=== PATIENT | female | born 2000 | race Caucasian/White ===

== ENCOUNTER 2023-08-26 16:22 | Emergency (ER) | payer SELFPAY ==
[2023-08-26 16:29] VITALS: BP 156/101
--- NOTE | 2023-08-26 17:28 | ED.GENMED ---
History of Present Illness
<Josey Roberts PA-C - Last Filed: 08/26/23 18:20>
General
Chief Complaint: Skin Surface Trauma
Source: patient
Exam Limitations: none
Time Seen by Provider: 08/26/23 17:25
Nursing documentation reviewed up to this point in time: agreed with
Travel History
Have you had any contact with someone who has COVID-19?: No
Do you have any symptoms of coronavirus? Fever > 100 degrees, chills, cough, shortness of breath, sore throat, loss of taste or smell, muscle aches, or headache?: No
History of Present Illness
History of Present Illness:
22-year-old female with no past medical history presents emergency department today with concerns of laceration on her left third digit. 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
and she cut her finger on the bridge can piece of glass. Patient states that she present to urgent care for this but they sent her to the emergency department due to involvement of her fingernail. Patient is up-to-date on her vaccines, up-to-date
on tetanus vaccination. Patient denies severe pain, fevers or chills, bony tenderness. Patient denies any chronic medical conditions. Patient denies any other injury
Review of Systems
<Josey Roberts PA-C - Last Filed: 08/26/23 18:20>
Review of Systems
All Other Systems: ROS reviewed and negative except as documented in HPI and ROS
Phy Exam
<Josey Roberts PA-C - Last Filed: 08/26/23 18:20>
Physical Exam
Physical Exam:
General: Patient is well appearing and in no acute distress; non-toxic
Skin: There is a linear, lateral, superficial laceration to the dorsal surface of the lateral third digit. Some mild active bleeding. No nailbed hematoma. No foreign body.
Head: Normocephalic, atraumatic
Eyes: Sclera non-icteric. EOMs intact.
Cardiac: Regular rate
Pulm: Normal respiratory effort
Musculoskeletal: 5 of 5 strength in bilateral upper extremities, 5 out of 5 strength in all digits bilaterally. Flexor tendons intact. No deformity of the digits. No bony tenderness to palpation of left third phalanges.
Neuro: CN II-XII intact, no focal neurologic deficits.
Psychiatric: Appropriate mood and affect. Patient appears anxious, she is tearful.
Course
<Josey Roberts PA-C - Last Filed: 08/26/23 18:20>
Orders/Labs/Results
Orders:
Orders
08/26/23 16:53
Lidocaine/Epinephrine/Tetracai [Let Topical Anesthetic Gel] 3 ml TOPICAL NOW STA
Vital Signs
Initial and Last Documented VS:
Initial Vital Signs
Temp Pulse Resp BP Pulse Ox
97.8 F 96 18 156/101 100
08/26/23 16:29 08/26/23 16:29 08/26/23 16:29 08/26/23 16:29 08/26/23 16:29
Last Documented Vital Signs
Temp Pulse Resp BP Pulse Ox
97.8 F 96 18 156/101 100
08/26/23 16:29 08/26/23 16:29 08/26/23 16:29 08/26/23 16:29 08/26/23 16:29
<Edgar Bourne MD - Last Filed: 08/26/23 19:28>
Orders/Labs/Results
Orders:
Orders
08/26/23 16:53
Lidocaine/Epinephrine/Tetracai [Let Topical Anesthetic Gel] 3 ml TOPICAL NOW STA
Vital Signs
Initial and Last Documented VS:
Initial Vital Signs
Temp Pulse Resp BP Pulse Ox
97.8 F 96 18 156/101 100
08/26/23 16:29 08/26/23 16:29 08/26/23 16:29 08/26/23 16:29 08/26/23 16:29
Last Documented Vital Signs
Temp Pulse Resp BP Pulse Ox
97.8 F 96 18 156/101 100
08/26/23 16:29 08/26/23 16:29 08/26/23 16:29 08/26/23 16:29 08/26/23 16:29
Procedures
<Josey Roberts PA-C - Last Filed: 08/26/23 18:20>
Laceration Closure
Left Third Finger:
Status of Wound: appears infected
Size of Wound in cm: 1
Description of Wound Edges: sharp
Preparation: cleaned with saline
Revision/Debridement: routine- no revision
Wound exploration: explored to base- no FB
Type of Closure: Dermabond-skin glue
<STEPHAN Dolan Last Filed: 08/26/23 18:20>
MDM/Problems Addressed
Differential Diagnosis Includes:
ddx include simple laceration, abrasion, contusion, nailbed laceration, phalanx fracture
MDM/Problems Addressed:
finger laceration
Chronic conditions affecting care:
n/a
Acute Exacerbation and/or Progression of Chronic Illness:
n/a
<STEPHAN Dolan Last Filed: 08/26/23 18:20>
*Critical Care Note
Total Time (30-74mins, 75-104mins- exclusive of procedures): Not Applicable
<STEPHAN Dolan Last Filed: 08/26/23 18:20>
Patient Management
Escalation/DeEscalation of care consider admission/obs:
22-year-old female with no past medical history presents emergency department today with concerns of laceration on her left third digit. Patient has no bony tenderness of the phalanges of the left hand. Patient is full range of motion of her
bilateral upper extremities. Patient is no numbness or tingling in her fingers. No indication for imaging. Patient is up-to-date on tetanus vaccination. Patient was sent to the emergency department from urgent care due to nail involvement,
however laceration is superficial and there is no nailbed involvement. Patient's laceration was repaired with glue, patient tolerated procedure well. Case was discussed with my attending Dr. Bourne.
ED Attending Note
<Josey Roberts PA-C - Last Filed: 08/26/23 18:20>
-
Portions of this chart may have been created with voice recognition software.� Occasional wrong word or��sound alike� substitutions may have occurred due to the inherent limitations of voice recognition software.
<Edgar Bourne MD - Last Filed: 08/26/23 19:28>
ED Attending Note
Patient seen and examined by attending physician: Yes
ED Attending Note:
Patient presents to ED secondary to accidental laceration of her left third and fifth digit on a broken dish, shortly prior to arrival. Patient states that her tetanus vaccination is up-to-date. No other injuries reported. On exam,
There is linear vertical laceration along lateral aspect left third fingernail, with laceration extending proximally and distally, an approximately 0.5 cm from the nail. Nail although with laceration, remains intact.
Wound cleansed with Shur-Clens and Dermabond apply to laceration site above and below the nail. Nail will be left alone, without concern for significant nailbed injury. Wound dressed and advised PCP or urgent care center follow-up for reevaluation
in 3 to 4 days.
Discharge Plan
Departure
Patient Disposition: Home (Routine Discharge)
Date of Disposition: 08/26/23
Time of Disposition: 18:03
Patient with high blood pressure during this ER visit?: Yes
Condition: Good
Discharge Problem:
Finger laceration
Instructions: Laceration Repair With Glue (DC), BLOOD PRESSURE
Activity Restrictions/Additional Instructions:
Please keep the wound dry for 24 hours, after 24 hours, you can wash the wound with mild soap and water.
You can cover your finger with a nonadherent dressing. Please wear thick gloves should you wash dishes.
Please follow-up with your primary care provider or urgent care provider in 1 week to ensure the resolution of your symptoms and healing of your wound.
Please return emergency department should you have fevers or chills, redness around the wound, purulent drainage from the wound, or any other concerning signs or symptoms.
Interventions
Interventions:
*Risk Screen - Suicide Last Done: 08/26/23 16:29
*Neglect/Abuse Screening Last Done: 08/26/23 16:29
*ED COVID-19 Vaccine History Last Done: 08/26/23 16:29
*Nursing Disposition Last Done: 08/26/23 18:18
Discharge Date and Time
Discharge Date/Time: 08/26/23 18:18
Print Language: [email or web address]
== END 2023-08-26 18:18 | disposition home or self-care (01) ==
LOC: EMR 16:22
PROVIDERS: EMERGENCY PHYSICIAN Emergency Medicine
DX: S61.213A Laceration without foreign body of left middle finger without damage to nail, initial encounter (principal); W45.8XXA Other foreign body or object entering through skin, initial encounter; Y93.G1 Activity, food preparation and clean up
CPT/HCPCS: 99282; 12001